=== PATIENT | male | born 1965 | race Hispanic/Latino ===

== ENCOUNTER 2018-03-01 02:58 | Emergency (ER) | payer MEDICAID ==
[2018-03-01 03:01] VITALS: BMI 21.1
[2018-03-01] MEDS ORDERED: Iohexol 240 (50 ml) PO ONE (04:09)
[2018-03-01] MEDS ORDERED: Sodium Chloride 0.9% 500 ML IV STA (04:09)
[2018-03-01] MEDS ORDERED: Morphine 4 MG/ML VIAL ONE ×2 (04:29→08:31)
[2018-03-01] MEDS ORDERED: Iohexol 240 (50 ml) ONE (04:29)
[2018-03-01 04:46] LABS: BASO # 0.1 K/uL (0.0-0.2); BASO % 1.1 % (0.0-2.0); EOS # 0.6 K/uL (0.0-0.7); EOS % 9.9 % (0.0-4.0); HEMOGLOBIN 11.7 g/dL (12.0-18.0); LYMPH % 16.2 % (20.0-40.0); MEAN CELL VOLUME 88.1 fl (80.0-94.0); MEAN CORPUSCULAR HEMOGLOBIN 28.2 pg (27.0-31.0); MONO # 0.8 K/uL (0.0-0.8); MONO % 13.2 % (0.0-10.0); NEUT # 3.8 K/uL (1.8-7.0); NEUT % 59.6 % (50.0-75.0); NRBC % 0.1 % (0.0-0.0); RBC 4.13 Mil/uL (4.40-5.90); RED CELL DISTRIBUTION WIDTH 18.6 % (11.5-14.5); WHITE BLOOD COUNT 6.3 K/uL (4.8-10.8)
[2018-03-01 04:51] LABS: VENOUS BLOOD GAS BASE EXCESS 1.5 mmol/L (0.0-2.0); VENOUS BLOOD GAS PCO2 46 mmHg (40-60); VENOUS BLOOD GAS PO2 22 mm/Hg (30-55); VENOUS BLOOD PH 7.38 (7.32-7.43)
[2018-03-01 04:55] LABS: ALB/GLOB RATIO 0.9 (1.0-2.1); ALBUMIN 3.9 g/dL (3.5-5.0); ALT/SGPT 38 U/L (21-72); AST/SGOT 78 U/L (17-59); BLOOD UREA NITROGEN 6 mg/dl (9-20); CALCIUM 9.3 mg/dL (8.4-10.2); GFR NON-AFRICAN AMERICAN > 60; LIPASE 555 U/L (23-300)
[2018-03-01 04:57] LABS: INR 1.2 (0.9-1.2); PARTIAL THROMBOPLASTIN TIME 57.8 Seconds (25.6-37.1); PROTHROMBIN TIME 13.7 Seconds (9.8-13.1)
--- NOTE | 2018-03-01 05:23 | ED PDOC ---
HPI: Abdomen <JosueSwapna Kin - Last Filed: 03/01/18 08:14> Chief Complaint (Provider): Abdominal Pain History Per: Patient History/Exam Limitations: no limitations Onset/Duration Of Symptoms: Persistent (x2 weeks) Current Symptoms Are (Timing): Still Present <Jkai Aponte PA-C - Last Filed: 03/02/18 23:17> Time Seen by Provider: 03/01/18 03:17 Chief Complaint (Nursing): Abdominal Pain Additional Complaint(s): Patient complains of gradual upper left abdominal pain, status post surgery for perforated uler x2 weeks ago, associated with nausea and loose stools. Otherwise : (-) fever, (-) chills, (-) vomiting, (-) chest pain, (-) shortness of breath or (-) urinary symptoms. (Jaki Aponte PA-C) Past Medical History <JosueDiondylan Sanderson - Last Filed: 03/01/18 08:14> Reviewed: Historical Data, Nursing Documentation, Vital Signs - Medical History PMH: Arthritis, Back Problems, Gastritis - Surgical History Surgical History: Back Surgery - Family History Family History: States: Unknown Family Hx - Immunization History Hx Tetanus Toxoid Vaccination: Yes Hx Influenza Vaccination: Yes Hx Pneumococcal Vaccination: No <Jaki Aponte PA-C - Last Filed: 03/02/18 23:17> Vital Signs: Last Vital Signs Temp 97.8 F 03/01/18 08:48 Pulse 68 03/01/18 10:28 Resp 18 03/01/18 10:28 BP 142/80 03/01/18 10:28 Pulse Ox 97 03/01/18 10:28 - Home Medications Home Medications: Ambulatory Orders Medication Instructions Recorded Aspirin [Ecotrin] 81 mg PO DAILY 02/25/18 Famotidine [Pepcid] 20 mg PO DAILY PRN #6 tab 03/01/18 - Allergies Allergies/Adverse Reactions: Allergies Allergy/AdvReac Type Severity Reaction Status Date / Time No Known Allergies Allergy Unverified 02/25/18 17:21 Review of Systems ROS Statement: Except As Marked, All Systems Reviewed And Found Negative Constitutional: Negative for: Fever, Chills Cardiovascular: Negative for: Chest Pain Respiratory: Negative for: Shortness of Breath Gastrointestinal: Positive for: Nausea, Abdominal Pain (upper left), Diarrhea. Negative for: Vomiting Genitourinary Male: Negative for: Dysuria, Incontinence, Hematuria <Jaki Aponte PA-C - Last Filed: 03/02/18 23:17> Physical Exam <Swapna Salas - Last Filed: 03/01/18 08:14> - Reviewed Nursing Documentation Reviewed: Yes Vital Signs Reviewed: Yes <Jaki Aponte PA-C - Last Filed: 03/02/18 23:17> - Physical Exam Comments: GENERAL APPEARANCE: Patient is awake, alert, oriented x 3, in moderate painful distress having difficulty laying back. SKIN: Warm, dry; (-) cyanosis. EYES: (-) conjunctival pallor, (-) scleral icterus. ENMT: Mucous membranes moist. NECK: (-) tenderness, (-) stiffness, (-) lymphadenopathy. CHEST AND RESPIRATORY: (-) rales, (-) rhonchi, (-) wheezes; breath sounds equal bilaterally. HEART AND CARDIOVASCULAR: (-) irregularity; (+) murmur, (-) gallop. ABDOMEN AND GI: (+) Large healing vertical surgical scar extending from epigastric to suprapubic area, (-) distention. Bowel sounds active; (+) tenderness in the upper and mid-abdomen, (-) guarding, (-) rebound, (-) palpable masses, (-) CVA tenderness. EXTREMITIES: (-) deformity, (-) edema, (+) distal pulses. NEURO AND PSYCH: Mental status as above; (-) focal findings. (Jaki Aponte PA-C) - Laboratory Results Result Diagrams: 03/01/18 04:39 03/01/18 04:39 <Swapna Salas - Last Filed: 03/01/18 08:14> - Laboratory Results Result Diagrams: 03/01/18 04:39 03/01/18 04:39 - ECG O2 Sat by Pulse Oximetry: 98 (RA) Pulse Ox Interpretation: Normal <Jaki Aponte PA-C - Last Filed: 03/02/18 23:17> Medical Decision Making <Swapna Salas - Last Filed: 03/01/18 08:14> <Fadi JACKSON,Jaki Banks - Last Filed: 03/02/18 23:17> Medical Decision Making: Time: 699 -- Patient endorsed to Dr. Tapia by Dr. Salas, pending CT. Scribe Attestation: Documented by Sabine Burdick acting as a scribe for Dr. Swapna Salas MD. Provider Scribe Attestation: All medical record entries made by the Scribe were at my direction and personally dictated by me. I have reviewed the chart and agree that the record accurately reflects my personal performance of the medical decision making for this patient. I have also personally directed, reviewed, and agree with the discharge instructions and disposition. (Swapna Salas) Initial Impression: LUQ pain Initial Plan: * VBG * CT ABD/pelvis with PO and IV contrast * EKG * CMP * Lipase * Urine dipstick * CBC * PTT * PT * CXR * Morphine 4mg IVP * NS 500ml IV per 500mls/hr * Omnipaque 50ml PO * Zofran 4mg IVP CXR : NAD, as read by [facility] EKG : NSR at 70 bpm, no acute ST changes, as read by [facility] Labs : Udip (-), lactate 1.6, AST 78 / ALT 38 / Alk Phos 148, Lipase 555. 0600 Patient laying in bed comfortably, pain is controlled at this time. Patient is pending CT. Scribe Attestation: Documented by Wendy Berger, acting as a scribe for Jaki Aponte PA-C. Provider Scribe Attestation: All medical record entries made by the Scribe were at my direction and personally dictated by me. I have reviewed the chart and agree that the record accurately reflects my personal performance of the history, physical exam, medical decision making, and the department course for this patient. I have also personally directed, reviewed, and agree with the discharge instructions and disposition. (Fadi JACKSON,Jaki Banks) Disposition <Swapna Salas - Last Filed: 03/01/18 08:14> - Patient ED Disposition Is Patient to be Admitted: Transfer of Care (Case endorsed to Dr. Tapia at 0700. ) - Disposition Disposition: Transfer of Care (Case endrosed to Dr. Tapia at [address] and final disposition) Disposition Time: 07:00 <Jaki Aponte PA-C - Last Filed: 03/02/18 23:17> - Clinical Impression Clinical Impression: Abdominal pain, Hepatic cirrhosis - Disposition Referrals: [facility] [Outside] - 03/03/18 Condition: STABLE Additional Instructions: Return if not better in 3 days. Prescriptions: Famotidine [Pepcid] 20 mg PO DAILY PRN #6 tab PRN Reason: Pain Instructions: Cirrhosis, Acute Abdomen (Belly Pain), Adult (DC) Forms: [employer] ([place]ian)
--- NOTE | 2018-03-01 07:36 | ED PDOC ---
- Laboratory Results Result Diagrams: 03/01/18 04:39 03/01/18 04:39 Interpretation Of Abn Labs: 555 lipase Urine dip results: Negative for: Leukocyte Esterase, Nitrate - ECG ECG: Positive for: Interpreted By Me, Viewed By Me ECG Rhythm: Positive for: Normal QRS, Normal ST Segment, Sinus Rhythm O2 Sat by Pulse Oximetry: 98 (RA) Pulse Ox Interpretation: Normal - Radiology X-Ray: Interpreted by Me, Viewed By Me X-Ray Interpretation: No Acute Disease - CT Scan/US ct Other Rad Studies (CT/US): Read By Radiologist Other Rad Interpretation: no acute - Progress ED Course And Treament: 951: Stable. AAOx3. Pain free. Tolerated PO. Wants to go home. Ambulated with no issues. Medical Decision Making Medical Decision Making: Time: 0700 -- Patient endorsed to me by Dr. Salas. Patient is a 53 y/o male with a PMHx of peptic ulcer perforation presents to the ED complaining of abdominal pain. Patient reports surgery was done a week ago, pending CT. Time: 08 CT ABD/PELVIS RESULTS FINDINGS: LOWER THORAX: Unremarkable. LIVER: Nodular contour or. No gross lesion or ductal dilatation. GALLBLADDER AND BILE DUCTS: Unremarkable. PANCREAS: Unremarkable. No gross lesion or ductal dilatation. SPLEEN: Unremarkable. ADRENALS: Unremarkable. No mass. KIDNEYS AND URETERS: Unremarkable. No hydronephrosis. No solid mass. VASCULATURE: Unremarkable. No aortic aneurysm. BOWEL: Small hiatal hernia. No obstruction. No gross mural thickening. APPENDIX: No findings to suggest acute appendicitis. PERITONEUM: Unremarkable. Small volume perihepatic ascites. Trace perisplenic ascites. No free air. LYMPH NODES: Unremarkable. No enlarged lymph nodes. BLADDER: Unremarkable. REPRODUCTIVE: Unremarkable. BONES: No acute fracture. OTHER FINDINGS: None. IMPRESSION: Hepatic cirrhosis with small volume perihepatic ascites. Scribe Attestation: Documented by Sabine Burdick acting as a scribe for Dr. Cassius Tapia MD. Provider Scribe Attestation: All medical record entries made by the Scribe were at my direction and personally dictated by me. I have reviewed the chart and agree that the record accurately reflects my personal performance of the history, physical exam, medical decision making, and the department course for this patient. I have also personally directed, reviewed, and agree with the discharge instructions and disposition. Disposition - Clinical Impression Clinical Impression: Abdominal pain, Hepatic cirrhosis - POA Present On Arrival: None - Disposition Referrals: [facility] [Outside] - 03/03/18 Disposition: Routine/Home Disposition Time: 09:52 Condition: STABLE Additional Instructions: Return if not better in 3 days. Prescriptions: Famotidine [Pepcid] 20 mg PO DAILY PRN #6 tab PRN Reason: Pain Instructions: Acute Abdomen (Belly Pain), Adult (DC), Cirrhosis Forms: [id number] (Romanian)
[2018-03-01] MEDS ORDERED: Iohexol 300 100 ML IJ ONE (07:46)
[2018-03-01] MEDS ORDERED: Morphine 4 MG/ML VIAL IV ONE (08:29)
--- NOTE | 2018-03-01 08:41 | CT ---
Date of service: 03/01/2018 PROCEDURE: CT Abdomen and Pelvis with contrast HISTORY: LUQ pain, s/p sx for gastric ulcer perforation COMPARISON: None. TECHNIQUE: Contrast dose: 95 mL Omnipaque 300 Radiation dose: Total exam DLP = 293.2 mGy-cm. This CT exam was performed using one or more of the following dose reduction techniques: Automated exposure control, adjustment of the mA and/or kV according to patient size, and/or use of iterative reconstruction technique. FINDINGS: LOWER THORAX: Unremarkable. LIVER: Nodular contour or. No gross lesion or ductal dilatation. GALLBLADDER AND BILE DUCTS: Unremarkable. PANCREAS: Unremarkable. No gross lesion or ductal dilatation. SPLEEN: Unremarkable. ADRENALS: Unremarkable. No mass. KIDNEYS AND URETERS: Unremarkable. No hydronephrosis. No solid mass. VASCULATURE: Unremarkable. No aortic aneurysm. BOWEL: Small hiatal hernia. No obstruction. No gross mural thickening. APPENDIX: No findings to suggest acute appendicitis. PERITONEUM: Unremarkable. Small volume perihepatic ascites. Trace perisplenic ascites. No free air. LYMPH NODES: Unremarkable. No enlarged lymph nodes. BLADDER: Unremarkable. REPRODUCTIVE: Unremarkable. BONES: No acute fracture. OTHER FINDINGS: None. IMPRESSION: Hepatic cirrhosis with small volume perihepatic ascites.
[2018-03-01 08:49] VITALS: TEMP 97.8
[2018-03-01 10:28] VITALS: BP 142/80; PULSE 68; RESP 18
--- NOTE | 2018-03-01 10:39 | RAD ---
Date of service: 03/01/2018 PROCEDURE: CHEST RADIOGRAPH, 1 VIEW HISTORY: LUQ pain COMPARISON: None available. FINDINGS: LUNGS: Right basilar atelectasis. PLEURA: No pleural effusion or appreciable pneumothorax. CARDIOVASCULAR: Atherosclerotic aortic calcifications. Cardiomediastinal silhouette within normal limits. OSSEOUS STRUCTURES: Degenerative changes. Partially imaged anterior cervical fixation plate. VISUALIZED UPPER ABDOMEN: Normal. OTHER FINDINGS: None. IMPRESSION: Right basilar atelectasis.
--- NOTE | 2018-03-01 14:41 | CARD ---
APPROVED REPORT Date of service: 03/01/2018 EKG Measurement Heart [id number] ME [id number] [id number] <Conclusion> Normal sinus rhythm Normal ECG
[2018-03-02 23:17] VITALS: O2SAT 98
== END 2018-03-01 10:30 | disposition home or self-care (01) ==
LOC: H.ER 02:58
DX: K74.60 Unspecified cirrhosis of liver (principal); R10.12 Left upper quadrant pain; Z79.82 Long term (current) use of aspirin; R18.8 Other ascites
CPT/HCPCS: 71045; 74177; 80053; 82803; 83690; 85025; 85610; 85730; 93005; 96374; 96375; 96376; 99285; J2270; J2405; J7030; Q9966; Q9967